=== PATIENT | female | born 1955 ===

== ENCOUNTER 2023-01-12 13:56 | Inpatient (IN) | payer OTHER ==
[~2023-01-12] VITALS: Ht 160 cm; Wt 86.4 kg
[~2023-01-12 13:56] MED LIST: AMLO-257 PO; AURYXIA PO; BACL20TA PO; FOLI1TAB85 PO; INSU100I24 SQ; ISOS10TA2 PO; METO25TA6 PO; PATI8.4P PO; PREG75CA75 PO; SEMA3TAB4 PO
[2023-01-12] MEDS ORDERED: ASPIRIN 81MG CHEW TAB PO ONE (14:00)
[2023-01-12 14:34] LABS: BASOPHILS % (AUTO) 0.5 % (0.0-5.0); EOSINOPHILS % (AUTO) 3.5 % (0.0-8.0); HEMATOCRIT 34.3 % (36-48); LYMPHOCYTES % (AUTO) 15.4 % (21.0-51.0); MEAN CORPUSCULAR HEMOGLOBIN 28.8 pg (27.0-33.0); MEAN CORPUSCULAR HGB CONC 31.2 g/dL (32.0-36.0); MEAN CORPUSCULAR VOLUME 92.5 fL (79-99); MONOCYTES % (AUTO) 8.1 % (3.0-13.0); NEUTROPHILS % (AUTO) 71.6 % (40.0-77.0); PLATELET COUNT (AUTO) 278 K/uL (130-400); RED BLOOD CELL COUNT(AUTO) 3.71 MIL/uL (4.00-5.50); RED CELL DISTRIBUTION WIDTH 13.9 % (11.0-15.5); WHITE BLOOD COUNT (AUTO) 9.5 K/uL (4.8-10.8)
[2023-01-12 14:50] LABS: CREATININE 3.1 mg/dL (0.5-1.5)
[2023-01-12 14:54] LABS: ALBUMIN 3.1 g/dL (3.5-5.0); TOTAL PROTEIN, SERUM 6.8 g/dL (6.0-8.3)
[2023-01-12 15:27] LABS: B-TYPE NATRIURETIC PEPTIDE 843 pg/mL (0-100)
[2023-01-12] MEDS ORDERED: ONDANSETRON 4MG INJ IVP PRN (18:00)
[2023-01-12] MEDS ORDERED: METO25TA6 PO (23:04)
[2023-01-12] MEDS ORDERED: AURYXIA PO (23:04)
[2023-01-12] MEDS ORDERED: ISOS10TA2 PO (23:04)
[2023-01-12] MEDS ORDERED: SEMA3TAB4 PO (23:04)
[2023-01-12] MEDS ORDERED: PREG75CA75 PO (23:04)
[2023-01-12] MEDS ORDERED: FOLI1TAB85 PO (23:04)
[2023-01-12] MEDS ORDERED: BACL20TA PO (23:04)
[2023-01-12] MEDS ORDERED: ACET-66 PO (23:04)
[2023-01-12] MEDS ORDERED: AMLO-257 PO (23:04)
[2023-01-13] VITALS: BP 168/85
[2023-01-13 04:00] VITALS: BP 164/81
[2023-01-13 06:40] LABS: BASOPHILS % (AUTO) 0.8 % (0.0-5.0); HEMATOCRIT 34.5 % (36-48); LYMPHOCYTES % (AUTO) 18.8 % (21.0-51.0); MEAN CORPUSCULAR HEMOGLOBIN 29.1 pg (27.0-33.0); MEAN CORPUSCULAR HGB CONC 31.3 g/dL (32.0-36.0); MONOCYTES % (AUTO) 10.8 % (3.0-13.0); NEUTROPHILS % (AUTO) 64.9 % (40.0-77.0); PLATELET COUNT (AUTO) 283 K/uL (130-400); RED BLOOD CELL COUNT(AUTO) 3.71 MIL/uL (4.00-5.50); RED CELL DISTRIBUTION WIDTH 13.9 % (11.0-15.5); WHITE BLOOD COUNT (AUTO) 8.9 K/uL (4.8-10.8)
[2023-01-13 06:48] LABS: HEMOGLOBIN A1C 7.2 % (4.0-6.0)
[2023-01-13 06:56] LABS: CREATININE 4.3 mg/dL (0.5-1.5); MAGNESIUM 2.4 mg/dL (1.80-2.40); POTASSIUM 5.5 mmol/L (3.5-5.1); TOTAL PROTEIN, SERUM 6.8 g/dL (6.0-8.3)
[2023-01-13 07:42] VITALS: BP 167/71
[2023-01-13] MEDS: ASPIRIN 81 MG EC TAB PO SCH (08:39)
[2023-01-13] MEDS ORDERED: NA ZIRCON CYCLOSIL(LOKELMA 10GM) PO ONE (10:00)
[2023-01-13 12:00] VITALS: BP 139/53
[2023-01-13] MEDS: ISOSORBIDE DINITRATE 10MG TAB PO SCH ×2 (13:42→21:16)
[2023-01-13 16:00] VITALS: BP 131/55
[2023-01-13 20:00] VITALS: BP 141/58
[2023-01-13] MEDS: METOPROLOL TARTRATE 25 MG TAB PO SCH (21:16)
[2023-01-13] MEDS ORDERED: METOPROLOL TARTRATE 50 MG TAB PO STA (23:03)
[2023-01-14] VITALS (21 sets, daily range): BP systolic 101–160; BP diastolic 39–68
[2023-01-14 05:13] LABS: BASOPHILS % (AUTO) 0.6 % (0.0-5.0); EOSINOPHILS % (AUTO) 4.3 % (0.0-8.0); HEMATOCRIT 31.6 % (36-48); LYMPHOCYTES % (AUTO) 22.9 % (21.0-51.0); MEAN CORPUSCULAR HEMOGLOBIN 28.7 pg (27.0-33.0); MEAN CORPUSCULAR VOLUME 92.7 fL (79-99); MONOCYTES % (AUTO) 10.9 % (3.0-13.0); NEUTROPHILS % (AUTO) 60.7 % (40.0-77.0); PLATELET COUNT (AUTO) 250 K/uL (130-400); RED BLOOD CELL COUNT(AUTO) 3.41 MIL/uL (4.00-5.50); RED CELL DISTRIBUTION WIDTH 13.7 % (11.0-15.5); WHITE BLOOD COUNT (AUTO) 8.3 K/uL (4.8-10.8)
[2023-01-14 05:30] LABS: CREATININE 5.6 mg/dL (0.5-1.5); POTASSIUM 5.5 mmol/L (3.5-5.1)
[2023-01-14] MEDS ORDERED: REGADENOSON 0.4 MG/5 ML PF SYG IVP SCH (07:00)
[2023-01-14] MEDS: ASPIRIN 81 MG EC TAB PO SCH (08:42)
[2023-01-14] MEDS: AMLODIPINE 5 MG TAB PO SCH (08:42)
[2023-01-14] MEDS: METOPROLOL TARTRATE 25 MG TAB PO SCH ×2 (08:42→20:47)
[2023-01-14] MEDS: ISOSORBIDE DINITRATE 10MG TAB PO SCH ×3 (08:42→20:47)
[2023-01-14] MEDS: Rena-Vite Rx Tablet PO SCH (08:43)
[2023-01-14] MEDS: LIDOCAINE HCL 2% JELLY 5 ML TP SCH (16:26)
[2023-01-14] MEDS: SEVELAMER HCL 800 MG TABLET PO SCH ×2 (16:26→17:21)
[2023-01-14] MEDS: INSULIN HUMULIN R 100 UNIT/ML 3ML SQ SCH ×2 (17:20→20:48)
[2023-01-14] MEDS ORDERED: EPOETIN ALFA-EPBX (NON-ESRD) 10,000 UNIT/ML VIAL SQ ONE (21:00)
[2023-01-15] VITALS (7 sets, daily range): BP systolic 119–148; BP diastolic 39–58
[2023-01-15] MEDS: INSULIN HUMULIN R 100 UNIT/ML 3ML SQ SCH ×5 (06:30→20:28)
[2023-01-15] MEDS ORDERED: REGADENOSON 0.4 MG/5 ML PF SYG IVP SCH (06:30)
[2023-01-15] MEDS: SEVELAMER HCL 800 MG TABLET PO SCH ×3 (08:00→16:51)
[2023-01-15] MEDS: Rena-Vite Rx Tablet PO SCH (09:00)
[2023-01-15] MEDS: ISOSORBIDE DINITRATE 10MG TAB PO SCH ×3 (09:04→21:17)
[2023-01-15] MEDS: METOPROLOL TARTRATE 25 MG TAB PO SCH ×2 (09:05→21:00)
[2023-01-15] MEDS: ASPIRIN 81 MG EC TAB PO SCH (09:05)
[2023-01-15] MEDS: ACETAMINOPHEN 325 MG TAB PO PRN (09:05)
[2023-01-15] MEDS: AMLODIPINE 5 MG TAB PO SCH (09:05)
[2023-01-15 11:05] LABS: HEMATOCRIT 34.1 % (36-48); MEAN CORPUSCULAR HEMOGLOBIN 28.7 pg (27.0-33.0); MEAN CORPUSCULAR HGB CONC 31.4 g/dL (32.0-36.0); MEAN CORPUSCULAR VOLUME 91.4 fL (79-99); PLATELET COUNT (AUTO) 229 K/uL (130-400); RED BLOOD CELL COUNT(AUTO) 3.73 MIL/uL (4.00-5.50); RED CELL DISTRIBUTION WIDTH 13.6 % (11.0-15.5); WHITE BLOOD COUNT (AUTO) 7.9 K/uL (4.8-10.8)
[2023-01-15 11:10] LABS: CREATININE 4.7 mg/dL (0.5-1.5); POTASSIUM 4.5 mmol/L (3.5-5.1)
[2023-01-15 13:45] LABS: BAND NEUTROPHILS % (MANUAL) 9 % (0-2); LYMPHOCYTES % (MANUAL) 22 % (22-44); MAN.DIFF COMMENT-IMPRESSION MANUAL DIFFERENTIAL; MONOCYTES % (MANUAL) 8 % (2-9); PLATELET MORPHOLOGY COMMENT ADEQUATE; SEGMENTED NEUTROPHILS % 61 % (40-70)
[2023-01-15] MEDS: LIDOCAINE HCL 2% JELLY 5 ML TP SCH (14:26)
[2023-01-16 03:58] VITALS: BP 139/53
[2023-01-16] MEDS: INSULIN HUMULIN R 100 UNIT/ML 3ML SQ SCH ×4 (06:41→20:26)
[2023-01-16 08:18] VITALS: BP 156/52
[2023-01-16] MEDS: METOPROLOL TARTRATE 25 MG TAB PO SCH ×2 (08:33→20:25)
[2023-01-16] MEDS: AMLODIPINE 5 MG TAB PO SCH (08:33)
[2023-01-16] MEDS: ASPIRIN 81 MG EC TAB PO SCH (08:33)
[2023-01-16] MEDS: SEVELAMER HCL 800 MG TABLET PO SCH ×3 (08:33→16:18)
[2023-01-16] MEDS: ISOSORBIDE DINITRATE 10MG TAB PO SCH ×3 (08:33→20:25)
[2023-01-16] MEDS: Rena-Vite Rx Tablet PO SCH (08:34)
[2023-01-16 12:00] VITALS: BP 153/57
[2023-01-16] MEDS: LIDOCAINE HCL 2% JELLY 5 ML TP SCH (12:43)
[2023-01-16 16:00] VITALS: BP 136/55
[2023-01-16] MEDS: ACETAMINOPHEN 325 MG TAB PO PRN (18:50)
[2023-01-16 20:58] VITALS: BP 147/63
[2023-01-17] VITALS (23 sets, daily range): BP systolic 130–176; BP diastolic 45–72
[2023-01-17 06:07] LABS: HEMATOCRIT 30.9 % (36-48); MEAN CORPUSCULAR HEMOGLOBIN 28.9 pg (27.0-33.0); MEAN CORPUSCULAR HGB CONC 31.1 g/dL (32.0-36.0); MEAN CORPUSCULAR VOLUME 93.1 fL (79-99); RED BLOOD CELL COUNT(AUTO) 3.32 MIL/uL (4.00-5.50); RED CELL DISTRIBUTION WIDTH 13.7 % (11.0-15.5); WHITE BLOOD COUNT (AUTO) 7.7 K/uL (4.8-10.8)
[2023-01-17 06:15] LABS: INR 0.93 (0.85-1.15); PROTHROMBIN TIME 10.1 SEC (9.6-11.6)
[2023-01-17 06:16] LABS: PARTIAL THROMBOPLASTIN TIME 29.6 SEC (26.3-35.5)
[2023-01-17 06:30] LABS: CREATININE 7.2 mg/dL (0.5-1.5); MAGNESIUM 2.3 mg/dL (1.80-2.40); POTASSIUM 4.4 mmol/L (3.5-5.1)
[2023-01-17] MEDS: INSULIN HUMULIN R 100 UNIT/ML 3ML SQ SCH ×4 (06:47→20:38)
[2023-01-17] MEDS: ASPIRIN 81 MG EC TAB PO SCH (09:00)
[2023-01-17] MEDS: Rena-Vite Rx Tablet PO SCH (09:00)
[2023-01-17] MEDS: ISOSORBIDE DINITRATE 10MG TAB PO SCH ×3 (09:16→20:38)
[2023-01-17] MEDS: METOPROLOL TARTRATE 25 MG TAB PO SCH ×2 (09:16→20:38)
[2023-01-17] MEDS: AMLODIPINE 5 MG TAB PO SCH (09:16)
[2023-01-17] MEDS: SEVELAMER HCL 800 MG TABLET PO SCH ×3 (09:19→20:37)
[2023-01-17] MEDS ORDERED: NITROGLYCERIN 50MG VIAL ONE (14:02)
[2023-01-17] MEDS ORDERED: IOHEXOL 350 MG/ML 100ML INFUS..BTL IV ONE (14:02)
[2023-01-17] MEDS ORDERED: VERAPAMIL HCL 2.5 MG/ML VIAL ONE (14:02)
[2023-01-17] MEDS ORDERED: HEPARIN 10,000 UNIT/10ML (1,000 UNIT/ML) VIAL ONE (14:02)
[2023-01-17] MEDS ORDERED: MIDAZOLAM HCL 1 MG/ML 2ML VIAL ONE (14:02)
[2023-01-17] MEDS ORDERED: FENTANYL CITRATE PF 50 MCG/1 ML 2ML VIAL ONE (14:02)
[2023-01-17] MEDS ORDERED: LIDOCAINE HCL 400MG/20ML VIAL ONE (14:03)
[2023-01-17] MEDS: LIDOCAINE HCL 2% JELLY 5 ML TP SCH ×2 (16:41→17:31)
[2023-01-17] MEDS: ACETAMINOPHEN 325 MG TAB PO PRN (17:15)
[2023-01-17] MEDS ORDERED: PREDNISONE 20 MG TABLET PO ONE (19:00)
[2023-01-18] VITALS (11 sets, daily range): BP systolic 118–162; BP diastolic 49–74
[2023-01-18] MEDS ORDERED: PREDNISONE 20 MG TABLET PO ONE ×2 (01:00→07:00)
[2023-01-18] MEDS ORDERED: NITROGLYCERIN 0.4 MG SL TAB SL ONE (05:12)
[2023-01-18] MEDS ORDERED: NITROGLYCERIN 0.4 MG SL TAB SL PRN (05:30)
[2023-01-18] MEDS: INSULIN HUMULIN R 100 UNIT/ML 3ML SQ SCH ×3 (06:37→17:00)
[2023-01-18 06:40] LABS: BASOPHILS % (AUTO) 0.4 % (0.0-5.0); HEMATOCRIT 35.9 % (36-48); LYMPHOCYTES % (AUTO) 8.7 % (21.0-51.0); MEAN CORPUSCULAR HEMOGLOBIN 28.8 pg (27.0-33.0); MEAN CORPUSCULAR HGB CONC 31.2 g/dL (32.0-36.0); MEAN CORPUSCULAR VOLUME 92.3 fL (79-99); MONOCYTES % (AUTO) 1.2 % (3.0-13.0); NEUTROPHILS % (AUTO) 89.3 % (40.0-77.0); PLATELET COUNT (AUTO) 217 K/uL (130-400); RED BLOOD CELL COUNT(AUTO) 3.89 MIL/uL (4.00-5.50); RED CELL DISTRIBUTION WIDTH 13.4 % (11.0-15.5); WHITE BLOOD COUNT (AUTO) 7.8 K/uL (4.8-10.8)
[2023-01-18 06:49] LABS: CREATININE 4.6 mg/dL (0.5-1.5)
[2023-01-18 07:05] LABS: INR 0.93 (0.85-1.15)
[2023-01-18 07:06] LABS: PARTIAL THROMBOPLASTIN TIME 30.5 SEC (26.3-35.5)
[2023-01-18] MEDS: SEVELAMER HCL 800 MG TABLET PO SCH ×3 (08:00→17:02)
[2023-01-18] MEDS: ISOSORBIDE DINITRATE 10MG TAB PO SCH ×2 (08:52→13:37)
[2023-01-18] MEDS: METOPROLOL TARTRATE 25 MG TAB PO SCH (08:53)
[2023-01-18] MEDS: AMLODIPINE 5 MG TAB PO SCH (08:53)
[2023-01-18] MEDS: ASPIRIN 81 MG EC TAB PO SCH (09:00)
[2023-01-18] MEDS: Rena-Vite Rx Tablet PO SCH (09:00)
[2023-01-18] MEDS ORDERED: PREDNISONE 20 MG TABLET PO SCH (14:00)
[2023-01-18] MEDS ORDERED: FENTANYL CITRATE PF 50 MCG/1 ML 2ML VIAL ONE (14:03)
[2023-01-18] MEDS ORDERED: LIDOCAINE HCL 400MG/20ML VIAL ONE (14:03)
[2023-01-18] MEDS ORDERED: BIVALIRUDIN 250 MG/VIAL IV ONE (14:03)
[2023-01-18] MEDS ORDERED: HEPARIN 10,000 UNIT/10ML (1,000 UNIT/ML) VIAL ONE (14:03)
[2023-01-18] MEDS ORDERED: IOHEXOL 350 MG/ML 100ML INFUS..BTL IV ONE (14:03)
[2023-01-18] MEDS ORDERED: MIDAZOLAM HCL 1 MG/ML 2ML VIAL ONE (14:03)
[2023-01-18] MEDS ORDERED: NITROGLYCERIN 50MG VIAL ONE (14:12)
== END 2023-01-18 18:50 | disposition home or self-care (01) | DRG 286 ==
LOC: EDH 13:56 → EDHIP 19:52 → 3CH 22:16
PROVIDERS: ADMIT Internal Medicine Infectious Disease; ATTEND Internal Medicine Infectious Disease
PROC: 5A1D70Z Performance of Urinary Filtration, Intermittent, Less than 6 Hours Per Day (ICD-10-PCS; 2023-01-14)
PROC: 5A1D70Z Performance of Urinary Filtration, Intermittent, Less than 6 Hours Per Day (ICD-10-PCS; 2023-01-17)
PROC: 4A023N7 Measurement of Cardiac Sampling and Pressure, Left Heart, Percutaneous Approach (ICD-10-PCS; principal; 2023-01-18)
PROC: B2111ZZ Fluoroscopy of Multiple Coronary Arteries using Low Osmolar Contrast (ICD-10-PCS; 2023-01-18)
PROC: B2151ZZ Fluoroscopy of Left Heart using Low Osmolar Contrast (ICD-10-PCS; 2023-01-18)
DX: I25.110 Atherosclerotic heart disease of native coronary artery with unstable angina pectoris (principal); N18.6 End stage renal disease; I12.0 Hypertensive chronic kidney disease with stage 5 chronic kidney disease or end stage renal disease; E87.5 Hyperkalemia; E87.6 Hypokalemia; D64.9 Anemia, unspecified; E11.22 Type 2 diabetes mellitus with diabetic chronic kidney disease; E66.01 Morbid (severe) obesity due to excess calories; E78.00 Pure hypercholesterolemia, unspecified; Z63.4 Disappearance and death of family member; Z99.2 Dependence on renal dialysis; Z82.49 Family history of ischemic heart disease and other diseases of the circulatory system; Z83.3 Family history of diabetes mellitus; Z91.041 Radiographic dye allergy status; Z68.33 Body mass index [BMI] 33.0-33.9, adult
CPT/HCPCS: 36415; 71045; 78452; 80048; 80053; 82550; 82948; 83036; 83735; 83874; 83880; 84100; 84484; 85025; 85027; 85610; 85730; 90935; 93005; 93017; 93458; 96374; 99156; 99157; A9500; C1760; C1894; G0378; J0583; J1644; J1815; J2250; J2785; J3010; J3490; Q9967